=== PATIENT | male | born 1990 | race Two or more races ===

== ENCOUNTER 2020-07-04 02:04 | Emergency (ER) | payer SELFPAY ==
--- NOTE | 2020-07-04 | ECG_ITS ---
APPROVED REPORT Exam: Resting ECG HR:96 bpm ECG Measurements Heart Rate 96 AXES NJ 142 P 47 QRSd 96 QRS 118 QT 330 T -4 QTc 416 <Conclusion> Normal sinus rhythm Left posterior fascicular block Abnormal QRS-T angle, consider primary T wave abnormality Abnormal ECG Electronically signed by : Romeo Mariano, 07/04/2020 06:01:17
--- NOTE | 2020-07-04 02:05 | PC.NURSE ---
used video interpretation with patient during initial triage and will continue to use for on going care.
[2020-07-04 02:20] VITALS: BP 149/95; PULSE 89; RESP 15; TEMP 36.6; O2SAT 97; BMI 28.3
--- NOTE | 2020-07-04 02:26 | CT_ITS ---
Procedure: CT ABDOMEN PELVIS W CON Referring Doctor: Gabe Izaguirre Patient Age:29Y CLINICAL INDICATION: belly pain. Epigastric pain with nausea and vomiting 6 days. Nonsmoker. No previous surgery COMPARISON: No exams were available for comparison TECHNIQUE: IV contrast-75 cc Optiray 350 No oral contrast Helical axial images obtained with sagittal and coronal reformats. All CT scans at the facility use one or more dose reduction, viz: automated exposure control, ma/kV adjustment per patient size (including targeted exams where dose is matched to indication, i.e. head), or iterative reconstruction technique. FINDINGS: Lower thorax: No acute finding ABDOMEN: Liver: No masses or biliary dilatation. The diffuse fatty changes the liver Gallbladder: Contracted. No radiopaque stones Pancreas: Unremarkable no masses or peripancreatic fluid collections. Spleen: Normal size unremarkable Adrenals: unremarkable Kidneys/ureters: unremarkable. Normal enhancement. PELVIS: Prostate slightly enlarged for this age patient measuring up to 5 cm transverse Bladder: Bladder is moderately distended measuring up to 11.7 cm height. No obvious stones or masses. . GI tract. Stomach and small bowel appear satisfactory.. No distension no obvious mass or thickening. Upper normal fluid at distal small bowel and upper normal caliber terminal ileum Large bowel. Generous stool is seen at the right colon and cecum. Mobile cecum directed towards midline here at the right mid to upper abdomen (rather than RLQ). The appendix is visualized and appears normal. Terminal ileum is unremarkable the the the the to the hepatic flexure the Peritoneum: No abnormal fluid collections. No obvious inflammatory changes. No free air. Lymph nodes: No enlarged lymph nodes apparent. Vasculature: No evidence of abdominal aortic aneurysm. No retroperitoneal findings Bones: No acute fracture nor osseous lesions. Minor disc bulge L5/S1 IMPRESSION: No significant acute findings abdomen or pelvis Only would note moderately distended bladder measuring up to 11.7 cm height.. Of questionable significance warrants correlations. Also note slightly generous prostate for age. The appendix is normal. No bowel dilatation or obstruction only question slight increased fluid distal small bowel Generous stool at mobile cecum Dictated by: Chance Maurice MD 07/04/2020 11:57 Chance Maurice MD in [place] 07/04/2020 11:57
[2020-07-04 02:36] LABS: Appearance,Urine CLEAR (Clear); Bilirubin,Urine Negative (Negative); Blood, Urine Negative (Negative); Color,Urine YELLOW (Yellow); Glucose,Urine (UA) 1+ (Negative); Ketones,Urine Negative (Negative); Leukocyte Esterase,Urine Negative (Negative); Microscopic, Urine URINE MICROSCOPIC (MICROSCOPIC); Nitrate,Urine Negative (Negative); Protein,Urine Negative (Negative); Urobilinogen,Urine 0.2 EU/dl (0.2)
[2020-07-04 02:41] LABS: Basophils % 0.6 % (0.1-2.0); Eosinophils # 0.2 K/mm3 (0.0-0.4); Eosinophils % 2.4 % (0.1-12.0); Hematocrit 46.5 % (42.0-52.0); Hemoglobin 16.1 g/dL (14.1-18.0); Lymphocytes # 2.5 K/mm3 (0.7-4.5); Lymphocytes % 36.7 % (10-50); Mean Corpuscular HGB Conc 34.5 g/dL (31.8-35.4); Mean Corpuscular Hemoglobin 31.6 pg (27.0-31.2); Mean Corpuscular Volume 91.7 fl (80-94); Mean Platelet Volume 7.7 fl (7.4-10.4); Monocytes # 0.3 K/mm3 (0.1-1.0); Monocytes % 4.8 % (1.7-9.3); Neutrophils # 3.8 K/mm3 (1.8-7.8); Neutrophils % 55.4 % (37.0-80.0); Platelet Count 220 K/mm3 (142-424); Red Blood Count 5.07 M/mm3 (4.60-6.20); Red Cell Distribution Width 13.2 % (11.5-17.5); White Blood Count 6.9 K/mm3 (4.8-10.8)
[2020-07-04 02:48] LABS: Alanine Aminotransferase 123 U/L (12-78); Albumin/Globulin Ratio 1.4 (1.1-1.8); Alkaline Phosphatase 107 U/L (38-126); Amylase 78 U/L (30-110); Anion Gap 16.7 mEq/L (5-15); Aspartate Amino Transferase 55 U/L (17-59); Bilirubin,Total 0.4 mg/dl (0.2-1.3); Blood Urea Nitrogen 19 mg/dl (9-20); Calcium 9.7 mg/dl (8.4-10.2); Carbon Dioxide 26 mmol/L (22.0-30.0); Chloride 101 mmol/L (98-107); Creatinine Clearance Estimated 166 mL/min (50-200); Estimated Glomerular Filt Rate 157 ml/min (>60); GFR (African American) 190 ML/MIN (>60); Globulin 3.6 g/dL (1.3-3.2); Glucose 171 mg/dl (74-100); Lipase 84 U/L (23-300); Potassium 3.7 mmoL/L (3.5-5.1); Sodium 140 mmol/L (136-145); Total Protein,Serum 8.6 g/dl (6.3-8.2)
[2020-07-04 02:54] LABS: Bacteria,Urine Trace /lpf; Squamous Epithelial Cell,Urine Occasional #/hpf (0-5); WBC,Urine Occasional #/hpf (0-3)
[2020-07-04 03:27] VITALS: BP 127/79; PULSE 101; O2SAT 96
--- NOTE | 2020-07-04 03:50 | [facility].EDNVD ---
ED Disposition Clinical Impression: Abdominal pain Qualifiers: Abdominal location: epigastric Qualified Code(s): R10.13 - Epigastric pain Disposition: Home, Self-Care Condition on Discharge: Good Instructions: DI for Acute Abdomen Additional Instructions: use meds and see pcp for follow up Prescriptions: Pantoprazole Sodium [Protonix 40mg tablet] 40 mg PO DAILY #30 tab Prescription Printed Referrals: PCP,No [Primary Care Provider] - - Critical Care Critical Care Time: No Attestation: On , the high probability of a clinically significant, sudden or life threatening deterioration of the following system(s) required my full and direct attention, intervention and personal management. The time I documented below is in addition to time spent performing reported procedures but includes the following listed in this critical care notation. Medical Decision Making - Medical Records Medical records reviewed: Yes: I reviewed the patient's medical records. - Angelito Inquiry Pt receiving controlled substance: No Vital Signs: 07/04/20 02:20 07/04/20 03:27 07/04/20 04:06 Temperature 97.9 F Temperature Source Oral Pulse Rate [Right Brachial] 89 101 H 72 Respiratory Rate 15 Blood Pressure [Right Arm] 149/95 H 127/79 114/66 Blood Pressure Mean [Right Arm] 113 95 82 Blood Pressure Source [Right Arm] Automatic Cuff Automatic Cuff Automatic Cuff Blood Pressure Position [Right Arm] Sitting Sitting Sitting 02 Sat by Pulse Oximetry 97 96 96 Oxygen Delivery Method Room Air Room Air Room Air 07/04/20 05:06 07/04/20 05:37 Temperature Temperature Source Pulse Rate [Right Brachial] 62 58 L Respiratory Rate 16 Blood Pressure [Right Arm] 121/75 122/68 Blood Pressure Mean [Right Arm] 90 86 Blood Pressure Source [Right Arm] Automatic Cuff Automatic Cuff Blood Pressure Position [Right Arm] Sitting Sitting 02 Sat by Pulse Oximetry 97 96 Oxygen Delivery Method Room Air - Lab Data Lab results reviewed: Yes: I reviewed the patient's lab results. Lab Results 07/04/20 02:25: Urine Color Yellow, Urine Appearance Clear, Urine pH 7.0, Ur Specific Elsie 1.020, Urine Protein Negative, Urine Glucose (UA) 1+, Urine Ketones Negative, Urine Blood Negative, Urine Nitrate Negative, Urine Bilirubin Negative, Urine Urobilinogen 0.2, Ur Leukocyte Esterase Negative, Urine WBC Occasional, Ur Squamous Epith Cells Occasional, Urine Bacteria Trace 07/04/20 02:25: WBC 6.9, RBC 5.07, Hgb 16.1, Hct 46.5, MCV 91.7, MCH 31.6 H, MCHC 34.5, RDW 13.2, Plt Count 220, MPV 7.7, Neut % (Auto) 55.4, Lymph % (Auto) 36.7, [place] % (Auto) 4.8, Eos % (Auto) 2.4, Baso % (Auto) 0.6, Neut # (Auto) 3.8, Lymph # (Auto) 2.5, [place] # (Auto) 0.3, Eos # (Auto) 0.2, Baso # (Auto) 0.0 07/04/20 02:25: Sodium 140, Potassium 3.7, Chloride 101, Carbon Dioxide 26, Anion Gap 16.7 H, BUN 19, Creatinine 0.60 L, Estimated Creat Clear 166, Estimated GFR 157, Est GFR ( Amer) 190, Glucose 171 H, Calcium 9.7, Total Bilirubin 0.4, AST 55, ALT 123 H, Alkaline Phosphatase 107, Total Protein 8.6 H, Albumin 5.0, Globulin 3.6 H, Albumin/Globulin Ratio 1.4, Amylase 78, Lipase 84 Result diagrams: 07/04/20 02:25 07/04/20 02:25 Orders (Tests/Meds): ED MEDICATIONS Generic Name Dose Route Start Last Admin Trade Name Freq PRN Reason Stop Dose Admin Sodium Chloride 1,000 mls @ 999 mls/hr 07/04/20 03:00 07/04/20 03:16 Sod Chlor 0.9% 1000ml Bag IV 07/04/20 04:00 999 mls/hr .Q1H1M LEONARD Administration Sodium Chloride 8 ml 07/04/20 02:47 07/04/20 03:16 Sodium Chloride 0.9% 10ml Vial IV 08/03/20 02:46 8 ml NEEDED PRN Administration dilute pepcid Discontinued Medications Generic Name Dose Route Start Last Admin Trade Name Freq PRN Reason Stop Dose Admin Famotidine 20 mg 07/04/20 02:47 07/04/20 03:15 Pepcid 20mg/2ml Vial IV 07/04/20 02:48 20 mg ONCE ONE Administration Ioversol 75 ml 07/04/20 04:58 07/04/20 05:43 Rad-Optiray 350
[2020-07-04 04:06] VITALS: BP 114/66; PULSE 72; O2SAT 96
[2020-07-04 05:06] VITALS: BP 121/75; PULSE 62; O2SAT 97
[2020-07-04 05:37] VITALS: BP 122/68; PULSE 58; RESP 16; O2SAT 96
[2020-07-04 06:25] VITALS: BP 121/75; PULSE 61; RESP 16; TEMP 36.6; O2SAT 97
== END 2020-07-04 06:46 | disposition home or self-care (01) ==
PROVIDERS: Emergency Provider Emergency Medicine
DX: R10.13 Epigastric pain (principal); R10.31 Right lower quadrant pain; R73.9 Hyperglycemia, unspecified
CPT/HCPCS: 74177; 80053; 81001; 82150; 83690; 85025; 93005; 96365; 96375; 99284; J2405; Q9967

== ENCOUNTER 2021-05-22 17:00 | Emergency (ER) | payer SELFPAY ==
[2021-05-22 17:01] VITALS: BP 130/87; PULSE 70; RESP 18; TEMP 36.6; O2SAT 98
[2021-05-22 18:03] LABS: Basophils # 0.1 K/mm3 (0-0.2); Basophils % 0.8 % (0.1-2.0); Eosinophils # 0.7 K/mm3 (0.0-0.4); Eosinophils % 11.7 % (0.1-12.0); Hematocrit 46.1 % (42.0-52.0); Lymphocytes # 1.3 K/mm3 (0.7-4.5); Lymphocytes % 21.4 % (10-50); Mean Corpuscular HGB Conc 34.8 g/dL (31.8-35.4); Mean Corpuscular Volume 86.2 fl (80-94); Mean Platelet Volume 7.4 fl (7.4-10.4); Monocytes # 0.3 K/mm3 (0.1-1.0); Monocytes % 4.8 % (1.7-9.3); Neutrophils # 3.6 K/mm3 (1.8-7.8); Neutrophils % 61.3 % (37.0-80.0); Platelet Count 236 K/mm3 (142-424); Red Blood Count 5.35 M/mm3 (4.60-6.20); Red Cell Distribution Width 13.6 % (11.5-17.5); White Blood Count 5.9 K/mm3 (4.8-10.8)
[2021-05-22 18:07] LABS: Chloride 104 mmol/L (98-107); Potassium 3.7 mmoL/L (3.5-5.1); Sodium 139 mmol/L (136-145)
[2021-05-22 18:10] LABS: Alanine Aminotransferase 53 U/L (12-78); Albumin/Globulin Ratio 1.5 (1.1-1.8); Alkaline Phosphatase 72 U/L (38-126); Anion Gap 14.7 mEq/L (5-15); Aspartate Amino Transferase 36 U/L (17-59); Bilirubin,Total 0.7 mg/dl (0.2-1.3); Blood Urea Nitrogen 17 mg/dl (9-20); Calcium 9.1 mg/dl (8.4-10.2); Carbon Dioxide 24 mmol/L (22.0-30.0); Creatinine Clearance Estimated 204 mL/min (50-200); Estimated Glomerular Filt Rate 193 ml/min (>60); GFR (African American) 233 ML/MIN (>60); Globulin 3.4 g/dL (1.3-3.2); Glucose 142 mg/dl (74-100); Lipase 82 U/L (23-300); Total Protein,Serum 8.4 g/dl (6.3-8.2)
[2021-05-22 18:10] LABS: Amylase 77 U/L (30-110)
[2021-05-22 18:14] VITALS: BP 113/78; O2SAT 98
--- NOTE | 2021-05-22 20:00 | [facility].EDGENADL ---
ED Disposition Clinical Impression: Abdominal pain Qualifiers: Abdominal location: left upper quadrant Qualified Code(s): R10.12 - Left upper quadrant pain Disposition: Home, Self-Care Condition on Discharge: Fair Instructions: DI for Acute Abdominal Pain Additional Instructions: Please avoid taking ibuprofen for pain. Please avoid spicy or acidic foods. Please present to your endoscopy appointment on June 07. May take Maalox as needed for symptomatic management. Please take your medication as prescribed. Por favor no tome ibuprofen/motrin para dolor. Por favor no coma comidas picosas o acidas. Por favor vaya a naylor joseph de endoscopia el . [place] Maalox para naylor sintomas. Por favor tome naylor medicina iván fue recetado. Prescriptions: Omeprazole [Omeprazole 40mg Capsule] 40 mg PO DAILY 14 Days #14 cap Prescription Printed Referrals: Provider,Referral, [Primary Care Provider] - - Critical Care Critical Care Time: No Attestation: On 05/22/21, the high probability of a clinically significant, sudden or life threatening deterioration of the following system(s) required my full and direct attention, intervention and personal management. The time I documented below is in addition to time spent performing reported procedures but includes the following listed in this critical care notation. Medical Decision Making - Medical Records Medical records reviewed: Yes: I reviewed the patient's medical records. - Angelito Inquiry Pt receiving controlled substance: No Vital Signs: 05/22/21 17:01 05/22/21 18:14 Temperature 98 F Temperature Source Oral Pulse Rate [Right] 70 Respiratory Rate 18 Blood Pressure 113/78 Blood Pressure [Right Arm] 130/87 Blood Pressure Mean [Right Arm] 101 Blood Pressure Source Automatic Cuff Blood Pressure Position Sitting 02 Sat by Pulse Oximetry 98 98 Oxygen Delivery Method Room Air Room Air - Lab Data Lab Results 05/22/21 17:34: Amylase 77 05/22/21 17:40: WBC 5.9, RBC 5.35, Hgb 16.0, Hct 46.1, MCV 86.2, MCH 30.0, MCHC 34.8, RDW 13.6, Plt Count 236, MPV 7.4, Neut % (Auto) 61.3, Lymph % (Auto) 21.4, [place] % (Auto) 4.8, Eos % (Auto) 11.7, Baso % (Auto) 0.8, Neut # (Auto) 3.6, Lymph # (Auto) 1.3, [place] # (Auto) 0.3, Eos # (Auto) 0.7 H, Baso # (Auto) 0.1 05/22/21 17:40: Sodium 139, Potassium 3.7, Chloride 104, Carbon Dioxide 24, Anion Gap 14.7, BUN 17, Creatinine 0.50 L, Estimated Creat Clear 204, Estimated GFR 193, Est GFR ( Amer) 233, Glucose 142 H, Calcium 9.1, Total Bilirubin 0.7, AST 36, ALT 53, Alkaline Phosphatase 72, Total Protein 8.4 H, Albumin 5.0, Globulin 3.4 H, Albumin/Globulin Ratio 1.5, Lipase 82 Result diagrams: 05/22/21 17:40 05/22/21 17:40 Orders (Tests/Meds): ED MEDICATIONS Generic Name Dose Route Start Last Admin Trade Name Freq PRN Reason Stop Dose Admin Morphine Sulfate 4 mg 05/22/21 18:08 Morphine 4mg/Ml Syringe IV 06/21/21 18:07 Q2HP PRN Breakthru Moderate Pain Discontinued Medications Generic Name Dose Route Start Last Admin Trade Name Freq PRN Reason Stop Dose Admin Belladonna Alkaloids 60 ml 05/22/21 18:34 05/22/21 18:41 Gi Cocktail 60ml Udc PO 05/22/21 18:35 60 ml ONCE ONE Administration Medical Decision Narrative: Upon presentation, patient is hemodynamically stable and nontoxic-appearing. Patient presents with left upper quadrant and epigastric pain. Labs including CBC, CMP were obtained. Patient was given 4 milligrams IV morphine for pain relief. I reviewed patient's labs which demonstrated normal white blood cell count, LFTs within normal range, bilirubin is normal. I do not believe the patient has a biliary obstructive pathology at this time. Patient symptoms sound more consistent with a gastric ulcer. Patient is already scheduled for an endoscopy on June 07, almost 2 weeks from today. Patient was given a GI cocktail. Upon reassessment, he states that his symptoms have impr
[2021-05-22 20:23] VITALS: BP 114/79; PULSE 73; RESP 18; TEMP 36.7; O2SAT 98
== END 2021-05-22 20:24 | disposition home or self-care (01) ==
PROVIDERS: Emergency Provider Emergency Medicine
DX: R10.12 Left upper quadrant pain (principal)
CPT/HCPCS: 80053; 82150; 83690; 85025; 96375; 99282; 99283